=== PATIENT | male | born 1955 | race Caucasian/White ===

== ENCOUNTER → 2016-10-31 | Outpatient (CLI) | payer OTHER ==
[2016-10-31 10:43] LABS: BLOOD GAS BASE EXCESS -0.6 mmol/L (-2-2); BLOOD GAS CARBOXYHEMOGLOBIN 3.3 % (0-4); BLOOD GAS HCO3 23 mmol/L (22-26); BLOOD GAS METHEMOGLOBIN 1.1 % (0-2); BLOOD GAS O2 HGB SATURATION 93 % (90-100); BLOOD GAS PCO2 36 mmHg (38-42); BLOOD GAS PO2 85 mmHg (61-120); CRITICAL VALUE NO; DRAW SITE LT RADIAL; FIO2 21 %; NUMBER OF ARTERIAL PUNCTURES 1; STAT NO; TEMP CORR TO 98.6; ULNAR PULSE PRESENT
--- NOTE | 2016-11-06 09:30 | RSPPFT ---
DATE OF PROCEDURE: 10/31/16 COMMENTS: Spirometry with FVC of 3.6, FEV1 of 2.2, FEV1/FVC ratio at 61%. A positive and significant response to acutely inhaled bronchodilator noted. Slow vital capacity is 85% of predicted. TLC is 89%. Diffusion capacity is mildly reduced however normal when corrected for alveolar volume. Room air arterial blood gases show pH of 7.43, PCO2 of 36, PO2 of 85. IMPRESSION: 1. Moderate airways obstruction. 2. Positive and significant response to acutely inhaled bronchodilator.
== END ==
LOC: HRSP 09:52
PROVIDERS: ATTEND Internal Medicine Sleep Medicine
DX: R06.09 Other forms of dyspnea (principal)
CPT/HCPCS: 36600; 82805; 94060; 94726; 94729